=== PATIENT | female | born 1940 | race Caucasian/White ===

== ENCOUNTER → 2017-04-24 | Outpatient (CLI) | payer MEDICARE, OTHER ==
[~2017-04-24] MED LIST: AMLO2.5T PO; ANTIOXIDANT FORMULA; CA C1TAB28 PO; CHOL100012 PO; COLE1TAB PO; MILK1POW PO; MULT-717 PO; enalapril PO; metoprolol PO
== END | disposition home or self-care (01) ==
LOC: CFH 06:39
PROVIDERS: ATTEND Internal Medicine Cardiovascular Disease
DX: I08.1 Rheumatic disorders of both mitral and tricuspid valves (principal); I10 Essential (primary) hypertension; Z87.891 Personal history of nicotine dependence
CPT/HCPCS: 93306

== ENCOUNTER 2017-08-03 10:08 | Emergency (ER) | payer MEDICARE ==
[~2017-08-03] VITALS: Ht 162.6 cm; Wt 45.0 kg
[~2017-08-03 10:08] MED LIST changes: +AMOX1TAB64 PO; +ASPI-621 PO; +ENAL10TA PO; +LISI1TAB5 PO; +METO25TA35 PO; +OXYC5TAB3 PO; +QUET25TA PO; +SENN1TAB7 PO
[2017-08-03 10:11] VITALS: BP 146/71
[2017-08-03] MEDS ORDERED: ASPI-515 PO (10:57)
[2017-08-03] MEDS ORDERED: METO-282 PO (10:57)
[2017-08-03] MEDS ORDERED: OXYC5TAB2 PO (10:58)
[2017-08-03] MEDS ORDERED: QUET25TA PO (10:59)
== END 2017-08-03 13:39 | disposition home or self-care (01) ==
LOC: ED 12:03
DX: S80.12XA Contusion of left lower leg, initial encounter (principal); I10 Essential (primary) hypertension; Z87.891 Personal history of nicotine dependence; W01.0XXA Fall on same level from slipping, tripping and stumbling without subsequent striking against object, initial encounter; Y93.89 Activity, other specified; Y92.89 Other specified places as the place of occurrence of the external cause; Y99.9 Unspecified external cause status
CPT/HCPCS: 99284

== ENCOUNTER 2017-09-01 17:53 | Emergency (ER) | payer MEDICARE ==
[~2017-09-01] VITALS: Ht 162.6 cm; Wt 44.0 kg
[~2017-09-01 17:53] MED LIST changes: +ASPI-515 PO; +METO-282 PO; +OXYC5TAB2 PO
[2017-09-01 17:55] VITALS: BP 142/78
[2017-09-01] MEDS ORDERED: DIPH,PERTUSS(ACELL),TET VAC/PF 0.5 ML IM-VACC ONE ×2 (18:39→19:00)
== END 2017-09-01 19:07 | disposition home or self-care (01) ==
LOC: ED 18:45
DX: M79.641 Pain in right hand (principal); I10 Essential (primary) hypertension; E11.9 Type 2 diabetes mellitus without complications; Z87.891 Personal history of nicotine dependence
CPT/HCPCS: 29125; 90471; 90715; 99284

== ENCOUNTER 2017-09-27 09:33 | Emergency (ER) | payer MEDICARE ==
[~2017-09-27] VITALS: Ht 162.6 cm; Wt 43.3 kg
[2017-09-27] MEDS ORDERED: METOPROLOL 1 MG/ML, 5ML IVPush ONE (10:00)
[2017-09-27] MEDS ORDERED: METOPROLOL 1 MG/ML, 5ML ONE (10:02)
[2017-09-27 10:07] LABS: BASOPHILS # (AUTO) 0.03 x10^3/uL (0-0.1); BASOPHILS % (AUTO) 1 % (0-1); EOSINOPHILS # (AUTO) 0.09 x10^3/uL (0-0.4); EOSINOPHILS % (AUTO) 2 % (1-7); LYMPHOCYTES # (AUTO) 1.12 x10^3/uL (1-3.4); LYMPHOCYTES % (AUTO) 20 % (22-44); MD NO; MEAN CORPUSCULAR HEMOGLOBIN 31.5 pg (27.0-34.8); MEAN CORPUSCULAR HGB CONC 33.7 g/dL (32.4-35.8); MEAN CORPUSCULAR VOLUME 93.6 fL (80-100); MEAN PLATELET VOLUME 9.6 fL (7.4-10.4); MONOCYTES # (AUTO) 0.43 x10^3/uL (0.2-0.8); MONOCYTES % (AUTO) 8 % (2-9); NEUTROPHILS # (AUTO) 3.95 x10^3/uL (1.8-6.8); NEUTROPHILS % (AUTO) 70 % (42-75); PLATELET COUNT 191 x10^3/uL (130-400); RED CELL DISTRIBUTION WIDTH 13.6 % (9.6-15.2)
[2017-09-27 10:19] LABS: ALBUMIN 3.8 g/dL (3.4-5.0); ANION GAP 7 mmol/L (5-15); CALCIUM 9.2 mg/dL (8.5-10.1); CHLORIDE 109 mmol/L (98-107); CREATININE 1.02 mg/dL (0.55-1.02)
[2017-09-27 11:18] VITALS: BP 125/60
== END 2017-09-27 11:20 | disposition home or self-care (01) ==
LOC: ED 10:13
DX: Z76.0 Encounter for issue of repeat prescription (principal); I47.1 Supraventricular tachycardia; I10 Essential (primary) hypertension; E11.9 Type 2 diabetes mellitus without complications
CPT/HCPCS: 36415; 80048; 82040; 85025; 93005; 96374

== ENCOUNTER 2017-10-06 11:48 | Emergency (ER) | payer MEDICARE ==
[~2017-10-06] VITALS: Ht 162.6 cm; Wt 44.0 kg
[2017-10-06] MEDS ORDERED: SODIUM CHLORIDE 0.9% 1,000ML IVBOLUS ONE (12:30)
[2017-10-06] MEDS ORDERED: ASPIRIN 81 MG TABLET CHEW PO ONE (12:30)
[2017-10-06] MEDS ORDERED: SODIUM CHLORIDE FLUSH 10ML SYR IVF ONE (12:30)
[2017-10-06] MEDS ORDERED: ASPIRIN 81 MG TABLET CHEW ONE (12:38)
[2017-10-06 12:47] LABS: BASOPHILS # (AUTO) 0.04 x10^3/uL (0-0.1); BASOPHILS % (AUTO) 1 % (0-1); EOSINOPHILS # (AUTO) 0.08 x10^3/uL (0-0.4); EOSINOPHILS % (AUTO) 2 % (1-7); LYMPHOCYTES # (AUTO) 1.41 x10^3/uL (1-3.4); LYMPHOCYTES % (AUTO) 28 % (22-44); MD NO; MEAN CORPUSCULAR HEMOGLOBIN 31.9 pg (27.0-34.8); MEAN CORPUSCULAR HGB CONC 33.8 g/dL (32.4-35.8); MEAN CORPUSCULAR VOLUME 94.5 fL (80-100); MEAN PLATELET VOLUME 9.5 fL (7.4-10.4); MONOCYTES # (AUTO) 0.46 x10^3/uL (0.2-0.8); MONOCYTES % (AUTO) 9 % (2-9); NEUTROPHILS # (AUTO) 3.04 x10^3/uL (1.8-6.8); NEUTROPHILS % (AUTO) 61 % (42-75); PLATELET COUNT 158 x10^3/uL (130-400); RED BLOOD COUNT 4.39 x10^6/uL (3.82-5.3); RED CELL DISTRIBUTION WIDTH 13.3 % (9.6-15.2)
[2017-10-06] MEDS ORDERED: DONE5TAB7 PO (12:49)
[2017-10-06] MEDS ORDERED: LISI1TAB5 PO (12:49)
[2017-10-06 12:54] LABS: INTERNATIONAL NORMALIZED RATIO 1.04 (0.93-1.1); PROTHROMBIN TIME 10.7 Seconds (9.6-11.5)
[2017-10-06 13:00] LABS: ALANINE AMINOTRANSFERASE 55 U/L (12-78); ALBUMIN 3.6 g/dL (3.4-5.0); ANION GAP 9 mmol/L (5-15); CALCIUM 9.3 mg/dL (8.5-10.1); CHLORIDE 106 mmol/L (98-107); CREATININE 0.93 mg/dL (0.55-1.02)
[2017-10-06 13:04] LABS: ALKALINE PHOSPHATASE 57 U/L (45-117); TOTAL PROTEIN 7.4 g/dL (6.4-8.2); TROPONIN I < 0.015 ng/mL (0.000-0.045)
[2017-10-06 15:06] VITALS: BP 151/72
== END 2017-10-06 15:31 | disposition home or self-care (01) ==
LOC: ED 12:22
DX: R00.0 Tachycardia, unspecified (principal); R00.2 Palpitations; I10 Essential (primary) hypertension; E11.9 Type 2 diabetes mellitus without complications; Z90.49 Acquired absence of other specified parts of digestive tract; Z87.891 Personal history of nicotine dependence
CPT/HCPCS: 36415; 71045; 80053; 83880; 84443; 84484; 85025; 85610; 85730; 93005; 96360; 99285; J7030

== ENCOUNTER 2018-08-03 20:34 | Observation (INO) | payer MEDICARE ==
[~2018-08-03] VITALS: Ht 162.6 cm; Wt 43.2 kg
[~2018-08-03 20:34] MED LIST changes: -AMLO2.5T PO; +AMLO2.5T3 PO; -ASPI-621 PO; +ASPI81TA45 PO; +DONE5TAB7 PO; -SENN1TAB7 PO; +SENN1TAB8 PO
[2018-08-03 21:19] LABS: BASOPHILS # (AUTO) 0.02 x10^3/uL (0-0.1); BASOPHILS % (AUTO) 0 % (0-1); EOSINOPHILS # (AUTO) 0.06 x10^3/uL (0-0.4); EOSINOPHILS % (AUTO) 1 % (1-7); LYMPHOCYTES # (AUTO) 1.38 x10^3/uL (1-3.4); LYMPHOCYTES % (AUTO) 31 % (22-44); MD NO; MEAN CORPUSCULAR HGB CONC 34.3 g/dL (32.4-35.8); MEAN CORPUSCULAR VOLUME 96.3 fL (80-100); MEAN PLATELET VOLUME 9.8 fL (7.4-10.4); MONOCYTES # (AUTO) 0.45 x10^3/uL (0.2-0.8); MONOCYTES % (AUTO) 10 % (2-9); NEUTROPHILS # (AUTO) 2.49 x10^3/uL (1.8-6.8); NEUTROPHILS % (AUTO) 57 % (42-75); PLATELET COUNT 129 x10^3/uL (130-400); RED BLOOD COUNT 4.18 x10^6/uL (3.82-5.3); RED CELL DISTRIBUTION WIDTH 12.7 % (9.6-15.2)
[2018-08-03 21:29] LABS: ALANINE AMINOTRANSFERASE 43 U/L (12-78); ALBUMIN 3.4 g/dL (3.4-5.0); ANION GAP 7 mmol/L (5-15); CALCIUM 8.7 mg/dL (8.5-10.1); CHLORIDE 109 mmol/L (98-107); CREATININE 0.95 mg/dL (0.55-1.02)
[2018-08-03 21:32] LABS: ALKALINE PHOSPHATASE 69 U/L (45-117); BILIRUBIN,TOTAL 0.4 mg/dL (0.2-1.0); TOTAL PROTEIN 6.7 g/dL (6.4-8.2)
[2018-08-03 22:57] LABS: MICROSCOPIC AUTO
[2018-08-03 23:00] LABS: CULTURE INDICATED? NO
[2018-08-04 01:25] VITALS: BP 153/93
[2018-08-04] MEDS ORDERED: GUAIFENESIN/COD200MG-20MG/10ML LIQUID PO PRN (01:30)
[2018-08-04] MEDS ORDERED: ACETAMINOPHEN 325 MG TABLET PO PRN (01:30)
[2018-08-04] MEDS ORDERED: hydrALAzine 20 MG/ML, 1ML IVPush PRN (01:30)
[2018-08-04] MEDS ORDERED: ONDANSETRON 2MG/ML, 2ML IVPush PRN (01:30)
[2018-08-04] MEDS ORDERED: DOCUSATE 100 MG CAPSULE PO PRN (01:30)
[2018-08-04 06:30] VITALS: BP 149/68
[2018-08-04] MEDS ORDERED: POTASSIUM CHLORIDE 20 MEQ TAB.ER.PRT PO ONE (07:30)
[2018-08-04] MEDS ORDERED: ENOXAPARIN 40 MG/0.4 ML SQ SCH (08:30)
[2018-08-04] MEDS ORDERED: METOPROLOL SUCCINATE 25 MG TAB.ER.24H PO SCH (09:00)
[2018-08-04] MEDS ORDERED: HYDROCHLOROTHIAZIDE 12.5 MG CAPSULE PO SCH (09:00)
[2018-08-04] MEDS ORDERED: DONEPEZIL 5 MG TABLET PO SCH (09:00)
[2018-08-04] MEDS ORDERED: [UNRECOGNIZED DRUG - REMARK] PO SCH (09:00)
[2018-08-04] MEDS ORDERED: AMLODIPINE 2.5 MG TABLET PO SCH (09:00)
[2018-08-04] MEDS ORDERED: MULTIVITAMIN 1 TABLET PO SCH (09:00)
[2018-08-04] MEDS ORDERED: MILK THISTLE 1000 MG PO SCH (09:00)
[2018-08-04] MEDS ORDERED: COLESTIPOL 1 GM TABLET PO SCH (09:00)
[2018-08-04] MEDS ORDERED: CHOLECALCIFEROL 1,000 UNIT TABLET PO SCH (09:00)
[2018-08-04] MEDS ORDERED: LISINOPRIL 20 MG TABLET PO SCH (09:00)
[2018-08-04] MEDS ORDERED: QUETIAPINE 25MG TABLET PO SCH (09:00)
[2018-08-04 12:51] VITALS: BP 119/57
== END 2018-08-04 14:15 | disposition home or self-care (01) ==
LOC: ED 21:26 → INTOOBSV 08-04 00:38 → 3NE 08-04 00:38
PROVIDERS: ADMIT Internal Medicine; ATTEND Internal Medicine
DX: R41.0 Disorientation, unspecified (principal); E11.9 Type 2 diabetes mellitus without complications; F02.81 Dementia in other diseases classified elsewhere, unspecified severity, with behavioral disturbance; G30.1 Alzheimer's disease with late onset; F23 Brief psychotic disorder; I10 Essential (primary) hypertension; I34.0 Nonrheumatic mitral (valve) insufficiency; R62.7 Adult failure to thrive; Z87.891 Personal history of nicotine dependence; Z91.83 Wandering in diseases classified elsewhere
CPT/HCPCS: 36415; 70450; 80053; 81001; 84443; 85025; 99284; G0378